=== PATIENT | female | born 1985 | race Caucasian/White ===

== ENCOUNTER 2018-04-06 10:42 | Emergency (ER) | payer MEDICAID | END 2018-04-06 12:10 | disposition home or self-care (01) | LOC: FTE 10:42 | DX: E86.0 Dehydration (principal); N30.00 Acute cystitis without hematuria; I10 Essential (primary) hypertension | CPT/HCPCS: 36415; 93971; 96374; 99285-25 ==

== ENCOUNTER 2018-04-26 17:57 | Inpatient (IN) | payer MEDICAID ==
[2018-04-26] MEDS ORDERED: LACTATED RINGER'S 1,000 ML IV (19:44)
[2018-04-26] MEDS ORDERED: CARBOPROST 250 MCG INJ IM (20:00)
[2018-04-26] MEDS ORDERED: METHYLERGONOVINE 0.2 MG INJ IM (20:00)
[2018-04-26] MEDS ORDERED: BUTORPHANOL 2 MG INJ IV (20:00)
[2018-04-26] MEDS ORDERED: MISOPROSTOL 200 MCG TAB PR (20:00)
[2018-04-26] MEDS ORDERED: OXYTOCIN 30 UNITS/LR 500 ML IV ×2 (20:00)
[2018-04-26] MEDS ORDERED: LIDOCAINE 1% (MPF) 30 ML INJ INJ (20:00)
[2018-04-26 20:30] LABS: ADD MAN DIFF? NO
[2018-04-26 20:34] LABS: BASOPHIL # 0.1 10^3/ul (0.0-0.1); BASOPHILS % 0.9 % (0.0-2.0); EOSINOPHILS % 0.3 % (0.0-7.0); HEMATOCRIT 32.6 % (37.0-47.0); HEMOGLOBIN 10.4 g/dl (12.0-16.0); LYMPHOCYTES # 2.4 10^3/ul (0.8-2.9); LYMPHOCYTES % 34.2 % (15.0-51.0); MEAN CORPUSCULAR HEMOGLOBIN 26.6 pg (29.0-33.0); MEAN CORPUSCULAR HGB CONC 31.9 g/dl (32.0-37.0); MEAN CORPUSCULAR VOLUME 83.4 fl (82.0-101.0); MEAN PLATELET VOLUME 11.8 fl (7.4-10.4); MONOCYTE # 0.5 10^3/ul (0.3-0.9); MONOCYTES % 7.8 % (0.0-11.0); NEUTROPHIL # 3.9 10^3/ul (1.6-7.5); NEUTROPHILS % 56.2 % (39.0-77.0); PLATELET COUNT 236 10^3/UL (140-415); RED BLOOD COUNT 3.91 10^6/ul (4.20-5.40); RED CELL DISTRIBUTION WIDTH 14.7 % (11.5-14.5)
[2018-04-26 20:34] LABS: WHITE BLOOD COUNT 6.9 10^3/ul (4.8-10.8)
[2018-04-26] MEDS: LACTATED RINGER'S 1,000 ML IV* (20:38)
[2018-04-26 21:08] LABS: ALANINE AMINOTRANSFERASE 22 IU/L (13-69); ALBUMIN 3.2 g/dl (3.3-4.9); ALBUMIN/GLOBULIN RATIO 0.88; ALKALINE PHOSPHATASE 166 IU/L (42-121); ANION GAP 11 (8-16); ASPARTATE AMINO TRANSFERASE 20 IU/L (15-46); BILIRUBIN,INDIRECT 0.3 mg/dl (0-1.1); BILIRUBIN,TOTAL 0.3 mg/dl (0.2-1.3); BLOOD UREA NITROGEN 10 mg/dl (7-20); CALCIUM 8.6 mg/dl (8.4-10.2); CARBON DIOXIDE 21 mmol/L (21-31); CHLORIDE 109 mmol/L (97-110); CREATININE 0.56 mg/dl (0.44-1.00); GLUCOSE 77 mg/dl (70-220); INR 0.93; MAGNESIUM 1.9 mg/dl (1.7-2.5); POTASSIUM 3.8 mmol/L (3.5-5.1); PROTIME 12.5 Sec (11.9-14.9); SODIUM 137 mmol/L (135-144); TOTAL PROTEIN 6.8 g/dl (6.1-8.1); URIC ACID 6.5 mg/dl (3.1-7.9)
[2018-04-26 21:10] LABS: PARTIAL THROMBOPLASTIN TIME 27.8 Sec (25.0-35.0)
[2018-04-26 21:38] LABS: HEPATITIS B SURFACE ANTIGEN NEGATIVE (NEGATIVE)
[2018-04-26 22:33] LABS: ADD UMIC YES; UR ASCORBIC ACID NEGATIVE (NEGATIVE); UR BACTERIA FEW /HPF (NONE SEEN); UR BILIRUBIN (Dip) NEGATIVE (NEGATIVE); UR BLOOD (Dip) NEGATIVE (NEGATIVE); UR CLARITY SLIGHTLY CLOUDY (CLEAR); UR COLOR YELLOW (YELLOW); UR GLUCOSE (Dip) NEGATIVE (NEGATIVE); UR KETONES (Dip) NEGATIVE (NEGATIVE); UR LEUKOCYTE ESTERASE (Dip) 3+ Leu/ul (NEGATIVE); UR NITRITE (Dip) NEGATIVE (NEGATIVE); UR RBC 2 /HPF (0-5); UR SPECIFIC GRAVITY (Dip) 1.011 (1.003-1.030); UR SQUAMOUS EPITHELIAL CELL FEW /HPF (FEW); UR TOTAL PROTEIN (Dip) 3+ mg/dl (NEGATIVE); UR UROBILINOGEN (Dip) NEGATIVE (NEGATIVE); UR WBC 2 /HPF (0-5)
[2018-04-26] MEDS ORDERED: GLUCAGON 1 MG INJ IM (23:00)
[2018-04-26] MEDS ORDERED: DEXTROSE 50% 50 ML SYRINGE IV ×2 (23:00)
[2018-04-26] MEDS ORDERED: GLUCOSE GEL 15 GRAM TUBE PO ×2 (23:00)
[2018-04-26] MEDS ORDERED: GLUCOSE GEL 15 GRAM TUBE BUCCAL (23:00)
[2018-04-27] MEDS: MAGNESIUM SULFATE 4 GM/100 ML 100 ML IVPB (00:26)
[2018-04-27] MEDS: LACTATED RINGER'S 1,000 ML IV* ×3 (00:28→20:25)
[2018-04-27] MEDS: MAGNESIUM SULFATE 20 GM/500 ML 500 ML IV ×2 (00:51→11:16)
[2018-04-27] MEDS: INSULIN ASPART [NOVOLOG] 3 ML PEN SC ×6 (01:00→21:00)
[2018-04-27] MEDS: OXYTOCIN 30 UNITS/LR 500 ML IV (02:19)
[2018-04-27] MEDS: DEXTROSE 5%-LR 1,000 ML IV (08:09)
[2018-04-27 10:42] LABS: MAGNESIUM 6.1 mg/dl (1.7-2.5)
[2018-04-27] MEDS: ACETAMINOPHEN 325 MG TAB PO (13:17)
[2018-04-27 16:42] LABS: MAGNESIUM 5.2 mg/dl (1.7-2.5)
[2018-04-27] MEDS: DINOPROSTONE 10 MG VAG SUPP VAG (17:00)
[2018-04-27 19:06] LABS: MAGNESIUM 5.2 mg/dl (1.7-2.5)
[2018-04-27 22:17] LABS: RAPID PLASMA REAGIN NONREACTIVE (NR)
[2018-04-28] MEDS: INSULIN ASPART [NOVOLOG] 3 ML PEN SC ×5 (01:00→17:00)
[2018-04-28] MEDS: MAGNESIUM SULFATE 20 GM/500 ML 500 ML IV (05:18)
[2018-04-28] MEDS ORDERED: FENTAnyl 2MCG/ML-ROPIV 0.2% 100 ML (06:26)
[2018-04-28] MEDS ORDERED: ONDANSETRON 4 MG INJ IV (07:00)
[2018-04-28] MEDS ORDERED: DIPHENHYDRAMINE 50 MG INJ IV (07:00)
[2018-04-28] MEDS ORDERED: NALOXONE (0.4 MG/ML) INJ IV (07:00)
[2018-04-28] MEDS ORDERED: HYDROmorphONE 0.5 MG/0.5 ML SYG IV ×2 (07:00)
[2018-04-28] MEDS ORDERED: KETOROLAC 30 MG INJ IV (07:00)
[2018-04-28 07:03] LABS: MAGNESIUM 4.9 mg/dl (1.7-2.5)
[2018-04-28] MEDS: FENTAnyl 2MCG/ML-ROPIV 0.2% 100 ML BAG EPI (08:22)
[2018-04-28] MEDS: ACETAMINOPHEN 325 MG TAB PO (11:06)
[2018-04-28 12:59] LABS: MAGNESIUM 5.1 mg/dl (1.7-2.5)
[2018-04-28] MEDS: DEXTROSE 5%-LR 1,000 ML IV (13:55)
[2018-04-28] MEDS: LACTATED RINGER'S 1,000 ML IV* ×2 (13:56→19:00)
[2018-04-28] MEDS: OXYTOCIN 30 UNITS/LR 500 ML IV ×3 (16:07→21:37)
[2018-04-28] MEDS: IBUPROFEN 600 MG TAB PO (18:20)
[2018-04-28] MEDS ORDERED: MISOPROSTOL 200 MCG TAB PR (19:00)
[2018-04-28] MEDS ORDERED: CARBOPROST 250 MCG INJ IM (19:00)
[2018-04-28] MEDS ORDERED: OXYTOCIN 30 UNITS/LR 500 ML IV (19:00)
[2018-04-28] MEDS ORDERED: ACETAMINOPHEN 325 MG TAB PO (19:00)
[2018-04-28] MEDS ORDERED: METHYLERGONOVINE 0.2 MG INJ IM (19:00)
[2018-04-28] MEDS ORDERED: SENNA/DOCUSATE NA (8.6MG/50MG) TAB PO (19:00)
[2018-04-28] MEDS ORDERED: MAGNESIUM HYDROXIDE 30ML CUP PO (19:00)
[2018-04-28] MEDS ORDERED: ZOLPIDEM 5 MG TAB PO (19:00)
[2018-04-28] MEDS ORDERED: HYDROCODONE/APAP (5/325) TAB PO (19:00)
[2018-04-28] MEDS ORDERED: DIPHENHYDRAMINE 25 MG CAP PO (19:00)
[2018-04-28] MEDS: BENZOCAINE 20% 56 ML SPRAY TOP (21:26)
[2018-04-28] MEDS: WITCH HAZEL/GLYCERIN PAD PR (21:26)
[2018-04-28] MEDS: LANOLIN 7 GM TUBE TOP (21:26)
[2018-04-29] MEDS: IBUPROFEN 800 MG TAB PO ×5 (00:06→23:41)
[2018-04-29] MEDS: LACTATED RINGER'S 1,000 ML IV* ×3 (03:00→19:30)
[2018-04-29 09:42] LABS: ADD MAN DIFF? NO
[2018-04-29 09:54] LABS: BASOPHILS % 0.5 % (0.0-2.0); EOSINOPHILS % 0.3 % (0.0-7.0); HEMATOCRIT 28.7 % (37.0-47.0); HEMOGLOBIN 9.1 g/dl (12.0-16.0); LYMPHOCYTES # 1.8 10^3/ul (0.8-2.9); LYMPHOCYTES % 24.1 % (15.0-51.0); MEAN CORPUSCULAR HGB CONC 31.7 g/dl (32.0-37.0); MEAN CORPUSCULAR VOLUME 85.2 fl (82.0-101.0); MEAN PLATELET VOLUME 12.1 fl (7.4-10.4); MONOCYTE # 0.7 10^3/ul (0.3-0.9); MONOCYTES % 8.8 % (0.0-11.0); NEUTROPHILS % 65.9 % (39.0-77.0); PLATELET COUNT 196 10^3/UL (140-415); RED BLOOD COUNT 3.37 10^6/ul (4.20-5.40); RED CELL DISTRIBUTION WIDTH 14.9 % (11.5-14.5)
[2018-04-29 09:54] LABS: WHITE BLOOD COUNT 7.6 10^3/ul (4.8-10.8)
[2018-04-29] MEDS: LABETALOL 100 MG TAB PO ×2 (14:13→21:03)
[2018-04-29] MEDS: DOCUSATE SODIUM 100 MG CAP PO (20:59)
[2018-04-29] MEDS: POLYSACCHARIDE IRON COMPLEX CAP PO (20:59)
[2018-04-29] MEDS: LANOLIN 7 GM TUBE TOP (23:41)
[2018-04-30] MEDS: IBUPROFEN 800 MG TAB PO ×2 (05:43→12:26)
[2018-04-30] MEDS: WITCH HAZEL/GLYCERIN PAD PR (05:49)
[2018-04-30] MEDS: BENZOCAINE 20% 56 ML SPRAY TOP (05:49)
[2018-04-30] MEDS: LANOLIN 7 GM TUBE TOP (05:49)
[2018-04-30] MEDS: VARICELLA VACCINE LIVE/PF 1,350 UNIT/0.5 ML ML SC* (09:00)
[2018-04-30] MEDS: MEASLES,MUMPS,RUBELLA VACCINE INJ SC* (09:00)
[2018-04-30] MEDS: DOCUSATE SODIUM 100 MG CAP PO (09:09)
[2018-04-30] MEDS: POLYSACCHARIDE IRON COMPLEX CAP PO (09:09)
[2018-04-30] MEDS: LABETALOL 100 MG TAB PO (09:13)
[2018-04-30] MEDS: DIPHTH/TET/ACEL PERTUSS (ADULT) 0.5 ML VIAL IM* (15:28)
== END 2018-04-30 16:55 | disposition home or self-care (01) | DRG 775 ==
LOC: PP1 04-28 19:00 → L-D 17:57
PROVIDERS: Obstetrics & Gynecology
PROC: 10E0XZZ Delivery of Products of Conception, External Approach (ICD-10-PCS; principal; 2018-04-28)
PROC: 0HQ9XZZ Repair Perineum Skin, External Approach (ICD-10-PCS; 2018-04-28)
PROC: 3E033VJ Introduction of Other Hormone into Peripheral Vein, Percutaneous Approach (ICD-10-PCS; 2018-04-28)
DX: O24.429 Gestational diabetes mellitus in childbirth, unspecified control (principal); O13.4 Gestational [pregnancy-induced] hypertension without significant proteinuria, complicating childbirth; O70.0 First degree perineal laceration during delivery; Z3A.37 37 weeks gestation of pregnancy; Z37.0 Single live birth
CPT/HCPCS: 62319; 76815; 80053; 81001; 82962; 83735; 84560; 85025; 85610; 85730; 86592; 86850; 86900; 86901; 87340; 90715